=== PATIENT | female | born 1960 | race Caucasian/White ===

== ENCOUNTER 2020-06-11 07:56 | Outpatient (CLI) | payer MEDICARE, MEDICAID, SELFPAY ==
--- NOTE | ~2020-06-11 | MM_ITS ---
EXAMINATION: MM screening [facility] w [facility] HISTORY: Screening mammogram TECHNIQUE: Craniocaudal and mediolateral oblique 3-D tomosynthesis images were obtained and synthetic 2-D images were generated. CAD analysis was submitted and interpreted. COMPARISON: 06/09/2019, 06/08/2018, 06/03/2017 bilateral digital screening mammogram examinations BREAST PARENCHYMAL COMPOSITION: There are scattered areas of fibroglandular density. FINDINGS: There is no evidence of suspicious mass, calcification, or architectural distortion to sugg est malignancy in either breast. There has been no suspicious interval change. IMPRESSION: 1. No mammographic evidence of malignancy. 2. Recommend routine screening mammography in one year. BI-RADS Category 1: Negative Reviewed, dictated and finalized at location A. AIRCRAFT SERVICER
== END 2020-06-11 07:57 | disposition home or self-care (01) ==
LOC: ANHIMG 07:59
PROVIDERS: PCP Emergency Medicine; Visit Provider Emergency Medicine
DX: Z12.31 Encounter for screening mammogram for malignant neoplasm of breast (principal)
CPT/HCPCS: 77063; 77067

== ENCOUNTER 2021-06-13 08:02 | Outpatient (CLI) | payer MEDICARE, MEDICAID, SELFPAY ==
--- NOTE | ~2021-06-13 | MM_ITS ---
EXAMINATION: MM screening [facility] BI w merrill HISTORY: Screening mammogram TECHNIQUE: Craniocaudal and mediolateral oblique 3-D tomosynthesis images were obtained and synthetic 2-D images were generated. CAD analysis was submitted and interpreted. COMPARISON: 06/11/2020, 06/09/2019, 06/08/2018 BREAST PARENCHYMAL COMPOSITION: The breasts are almost entirely fatty. FINDINGS: There is no evidence of suspicious mass, calcification, or architectural distortion to sugg est malignancy in either breast. There has been no suspicious interval change. IMPRESSION: 1. No mammographic evidence of malignancy. 2. Recommend routine screening mammography in one year. BI-RADS Category 1: Negative Reviewed, dictated and finalized at location A. RICT DIRECTOR
== END 2021-06-13 08:03 | disposition home or self-care (01) ==
PROVIDERS: PCP Emergency Medicine; Visit Provider Emergency Medicine
DX: Z12.31 Encounter for screening mammogram for malignant neoplasm of breast (principal)
CPT/HCPCS: 77063; 77067

== ENCOUNTER → 2022-03-13 08:23 | Outpatient (CLI) | payer MEDICARE, MEDICAID, SELFPAY ==
--- NOTE | ~2022-03-13 | XR_ITS ---
XR lumbar spine 2-3V DATE: 03/13/2022 08:41 INDICATION: Low back pain, bilateral leg numbness for years. No injury. TECHNIQUE: AP, lateral, coned lateral lumbosacral views COMPARISON: 02/22/2019 lumbar spine 12/11/2016 CT abdomen pelvis FINDINGS: There is osteopenia. Chronic loss of height at L5-S1 disc space, also present on 03/11/2019. Moderate degenerative disc disease at L1-2. Minimal degenerative disc disease at L3-4. No fracture or bone destruction or spondylolisthesis. The included lower thoracic and lumbar pedicles are intact. The sacroiliac joints appear normal. IMPRESSION: Degenerative disc disease Osteopenia Reviewed, dictated and finalized at location B.
--- NOTE | ~2022-03-13 | XR_ITS ---
XR_CERV2-3V_CR DATE: 03/13/2022 08:41 INDICATION: Neck pain, left arm pain and numbness for years TECHNIQUE: AP, open-mouth, lateral views COMPARISON: None FINDINGS: C1 and C2 are normally aligned and the odontoid process is intact. No fracture or dislocati on, locked facet or prevertebral soft tissue swelling. C2-3, C3-4 and C4-5 interspaces are well preserved. There is mild anterior subluxation at C4-5. Moderate degenerative disc disease and prominent posterior spurring at C5-6. Moderately severe degenerative disease at C6-7. There is uncovertebral joint spurring primarily at C5-6 and C6-7. There is degenerative change at the apophyseal joints. IMPRESSION: Cervical spondylosis Reviewed, dictated and finalized at Location A. Reviewed, dictated and finalized at location B. IMPRESSION: Cervical spondylosis
== END ==
PROVIDERS: PCP Emergency Medicine; Visit Provider Emergency Medicine
DX: G89.29 Other chronic pain (principal); M51.36 Other intervertebral disc degeneration, lumbar region; M85.88 Other specified disorders of bone density and structure, other site; M47.812 Spondylosis without myelopathy or radiculopathy, cervical region
CPT/HCPCS: 72040; 72100

== ENCOUNTER 2022-08-06 08:04 | Outpatient (CLI) | payer MEDICARE, MEDICAID, SELFPAY ==
--- NOTE | ~2022-08-06 | MM_ITS ---
EXAMINATION: MM screening [facility] w [facility] HISTORY: Screening mammogram TECHNIQUE: Craniocaudal and mediolateral oblique 3-D tomosynthesis images were obtained and synthetic 2-D images were generated. CAD analysis was submitted and interpreted. COMPARISON: 06/13/2021, 06/11/2020, 06/09/2019 bilateral mammogram examinations BREAST PARENCHYMAL COMPOSITION: There are scattered areas of fibroglandular density. FINDINGS: There is no evidence of suspicious mass, calcification, or architectural distortion to sugg est malignancy in either breast. There has been no suspicious interval change. IMPRESSION: 1. No mammographic evidence of malignancy. 2. Recommend routine screening mammography in one year. BI-RADS Category 1: Negative Reviewed, dictated and finalized at location A. ESENTATIVE GOVERNMENT RELATIONS
== END 2022-08-06 08:05 | disposition home or self-care (01) ==
PROVIDERS: PCP Emergency Medicine; Visit Provider Emergency Medicine
DX: Z12.31 Encounter for screening mammogram for malignant neoplasm of breast (principal)
CPT/HCPCS: 77063; 77067

== ENCOUNTER → 2022-08-22 09:41 | Outpatient (CLI) | payer MEDICARE, MEDICAID, SELFPAY ==
--- NOTE | ~2022-08-22 | XR_ITS ---
XR elbow RT 2V 08/22/2022 09:53 INDICATION: Right elbow pain for one week PROCEDURE: 2 views right elbow COMPARISON: No prior studies for comparison. FINDINGS: Fracture, dislocation or subluxation is not identified. The soft tissues appear within norm al limits. No foreign bodies are identified. IMPRESSION: 1: NO ACUTE BONE OR JOINT ABNORMALITY IDENTIFIED. Reviewed, dictated and finalized at location B. ONAUTICAL ENGINEER
== END ==
PROVIDERS: PCP Emergency Medicine; Visit Provider Emergency Medicine
DX: M25.521 Pain in right elbow (principal)
CPT/HCPCS: 73070

== ENCOUNTER → 2022-09-17 10:56 | Outpatient (CLI) | payer MEDICARE, MEDICAID, SELFPAY ==
--- NOTE | ~2022-09-17 | XR_ITS ---
Left Knee Technique: AP and lateral views were obtained. Clinical History: Pain Findings: No fracture or dislocation is seen. Osseous alignment is anatomic. Joint spaces are preserv ed without degenerative or erosive change. Soft tissues are unremarkable. No joint effusion is seen. Impression: Unremarkable left knee radiographs. Reviewed, dictated and finalized at location . Impression: Unremarkable left knee radiographs.
--- NOTE | ~2022-09-17 | XR_ITS ---
Right Knee Technique: AP and lateral views were obtained. Clinical History: Pain Findings: No fracture or dislocation is seen. Osseous alignment is anatomic. Joint spaces are preserv ed without degenerative or erosive change. Soft tissues are unremarkable. No joint effusion is seen. Impression: Unremarkable right knee radiographs. Reviewed, dictated and finalized at location . Impression: Unremarkable right knee radiographs.
== END ==
PROVIDERS: PCP Emergency Medicine; Visit Provider Nurse Practitioner Family
DX: M25.562 Pain in left knee (principal); M25.561 Pain in right knee
CPT/HCPCS: 73560

== ENCOUNTER 2022-11-12 08:47 | Outpatient (CLI) | payer MEDICARE, MEDICAID, SELFPAY ==
[2022-11-12 09:36] LABS: Appearance Urine Cloudy (Clear); Bilirubin Urine Negative (Negative); Blood Urine Trace (Negative); Color Urine Yellow (Yellow); Glucose Urine UA Negative (Negative); Ketones Urine Negative (Negative); Leukocyte Esterase Ur 3+ LEU/UL (NEGATIVE); Nitrate Urine Negative (Negative); Protein Urine Negative (Negative); Specific Grav Ur 1.007 (1.001-1.035); Urobilinogen Urine 0.2 mg/dL (<2.0); pH Urine 6.5 (5.0-9.0)
[2022-11-12 09:41] LABS: Anion Gap 11 mmol/L (8-16); Blood Urea Nitrogen 15 mg/dL (7-17); Calcium 8.4 mg/dL (8.4-10.2); Carbon Dioxide 24 mmol/L (22-30); Chloride 96 mmol/L (98-107); Estimated Glomerular Filt Rate 42; Glucose 105 mg/dL (65-110); Sodium 131 mmol/L (137-145)
[2022-11-12 11:08] LABS: WBC Clumps Urine Present /hpf; WBC Urine >100 /hpf (0-3)
[2022-11-12 11:09] LABS: Squamous Epithelial Cell Urine Few /hpf (Few); Transitional Epi Cells Urine Few /hpf (None Seen)
[2022-11-12 11:10] LABS: Add Urine Microscopic? YES; Bacteria Urine 1+ /hpf
== END 2022-11-12 08:48 | disposition home or self-care (01) ==
PROVIDERS: PCP Emergency Medicine; Visit Provider Emergency Medicine
DX: E78.5 Hyperlipidemia, unspecified (principal)
CPT/HCPCS: 36415; 80048; 81001

== ENCOUNTER 2022-11-18 09:26 | Outpatient (CLI) | payer MEDICARE, MEDICAID, SELFPAY ==
[2022-11-18 10:06] LABS: Basophils Percent Auto 0.2 % (0.2-1.2); Eosinophils Absolute Auto 0.1 K/mm3 (0-0.3); Eosinophils Percent Auto 0.6 % (0-4.4); Hematocrit 27.1 % (37.0-47.0); Hemoglobin 8.9 g/dL (12.0-15.0); Immature Granulocyte Absolute 0.12 K/mm3 (0.00-0.031); Immature Granulocyte Percent A 1.3 % (0-0.5); Lymphocytes Absolute Auto 2.17 K/mm3 (0.9-3.2); Mean Corpuscular HGB Conc 32.8 g/dl (32-36); Mean Corpuscular Hemoglobin 35.7 pg (26-34); Mean Corpuscular Volume 108.8 fl (80-100); Mean Platelet Volume 10.2 fl (7.4-10.4); Monocytes Absolute Auto 0.8 K/mm3 (0.1-0.6); Monocytes Percent Auto 9.3 % (2.6-8.5); Neutrophils Absolute Auto 5.8 K/mm3 (1.3-6.7); Neutrophils Percent Auto 64.6 % (45.5-73.1); Platelet Count Result 211 k/mm3 (150-375); Red Blood Count 2.49 M/mm3 (4.2-5.4)
[2022-11-18 10:12] LABS: Alanine Aminotransferase 30 U/L (6-35); Albumin Level 3.5 g/dL (3.5-5.1); Alkaline Phosphatase 155 U/L (38-126); Anion Gap 9 mmol/L (8-16); Aspartate Amino Transferase 71 U/L (14-36); Bilirubin,Total 1.5 mg/dL (0.2-1.3); Blood Urea Nitrogen 17 mg/dL (7-17); Calcium 8.9 mg/dL (8.4-10.2); Carbon Dioxide 31 mmol/L (22-30); Chloride 90 mmol/L (98-107); Estimated Glomerular Filt Rate 46; Glucose 89 mg/dL (65-110); Potassium 4.1 mmol/L (3.4-5.0); Sodium 130 mmol/L (137-145)
[2022-11-18 10:13] LABS: Ethanol 32 mg/dL (<10)
[2022-11-18 10:23] LABS: INR 1.3; Prothrombin Time 16.6 Seconds (11.1-14.7)
[2022-11-18 12:03] LABS: Platelet Estimate Adequate (Adequate)
[2022-11-18 12:04] LABS: Anisocytosis 2+ (NORMAL); Macrocytosis 2+ (NORMAL)
[2022-11-18 12:05] LABS: Schistocytes None Seen (NORMAL); Stomatocytes 1+ (NORMAL)
[2022-11-24 08:25] LABS: Reference Lab Test Name Phosphatidylethanol
== END 2022-11-18 09:27 | disposition home or self-care (01) ==
PROVIDERS: PCP Emergency Medicine
DX: K70.31 Alcoholic cirrhosis of liver with ascites (principal)
CPT/HCPCS: 36415; 80053; 80307; 82248; 85025; 85610

== ENCOUNTER 2022-12-24 13:51 | Outpatient (CLI) | payer MEDICARE, MEDICAID, SELFPAY ==
[2022-12-24 16:21] LABS: Basophils Absolute Auto 0.1 K/mm3 (0.0-0.1); Basophils Percent Auto 0.7 % (0.2-1.2); Eosinophils Absolute Auto 0.1 K/mm3 (0-0.3); Eosinophils Percent Auto 0.5 % (0-4.4); Hematocrit 31.2 % (37.0-47.0); Hemoglobin 10.4 g/dL (12.0-15.0); Immature Granulocyte Absolute 0.05 K/mm3 (0.00-0.031); Immature Granulocyte Percent A 0.5 % (0-0.5); Lymphocytes Absolute Auto 1.36 K/mm3 (0.9-3.2); Lymphocytes Percent Auto 12.9 % (18.3-44.2); Mean Corpuscular HGB Conc 33.3 g/dl (32-36); Mean Corpuscular Hemoglobin 34.8 pg (26-34); Mean Corpuscular Volume 104.3 fl (80-100); Mean Platelet Volume 9.6 fl (7.4-10.4); Monocytes Absolute Auto 0.8 K/mm3 (0.1-0.6); Neutrophils Absolute Auto 8.2 K/mm3 (1.3-6.7); Neutrophils Percent Auto 77.4 % (45.5-73.1); Platelet Count Result 259 k/mm3 (150-375); Red Blood Count 2.99 M/mm3 (4.2-5.4); Red Cell Distribution Width 14.3 % (11.5-14.5); White Blood Count 10.5 K/mm3 (4.5-10.0)
[2022-12-24 16:31] LABS: Ethanol < 10 mg/dL (<10)
[2022-12-24 16:32] LABS: INR 1.4; Prothrombin Time 17.5 Seconds (11.1-14.7)
[2022-12-24 16:33] LABS: Alanine Aminotransferase 20 U/L (6-35); Albumin Level 3.2 g/dL (3.5-5.1); Alkaline Phosphatase 264 U/L (38-126); Anion Gap 10 mmol/L (8-16); Aspartate Amino Transferase 56 U/L (14-36); Blood Urea Nitrogen 10 mg/dL (7-17); Calcium 8.5 mg/dL (8.4-10.2); Carbon Dioxide 28 mmol/L (22-30); Chloride 89 mmol/L (98-107); Estimated Glomerular Filt Rate 38; Glucose 82 mg/dL (65-110); Potassium 3.6 mmol/L (3.4-5.0); Sodium 127 mmol/L (137-145)
== END 2022-12-24 13:52 | disposition home or self-care (01) ==
PROVIDERS: PCP Emergency Medicine
DX: K70.30 Alcoholic cirrhosis of liver without ascites (principal)
CPT/HCPCS: 36415; 80053; 80307; 82248; 85025; 85610

== ENCOUNTER 2023-02-17 11:27 | Outpatient (CLI) | payer MEDICARE, MEDICAID, SELFPAY ==
[2023-02-17 13:39] LABS: Alanine Aminotransferase 18 U/L (6-35); Albumin Level 2.9 g/dL (3.5-5.1); Alkaline Phosphatase 167 U/L (38-126); Anion Gap 10 mmol/L (8-16); Aspartate Amino Transferase 56 U/L (14-36); Bilirubin,Total 2.3 mg/dL (0.2-1.3); Blood Urea Nitrogen 13 mg/dL (7-17); Calcium 8.6 mg/dL (8.4-10.2); Carbon Dioxide 23 mmol/L (22-30); Chloride 95 mmol/L (98-107); Estimated Glomerular Filt Rate 42; Glucose 90 mg/dL (65-110); Potassium 3.7 mmol/L (3.4-5.0); Sodium 128 mmol/L (137-145)
== END 2023-02-17 11:28 | disposition home or self-care (01) ==
PROVIDERS: PCP Emergency Medicine
DX: K70.31 Alcoholic cirrhosis of liver with ascites (principal)
CPT/HCPCS: 36415; 80053

== ENCOUNTER 2023-03-04 11:46 | Outpatient (CLI) | payer MEDICARE, MEDICAID, SELFPAY ==
[2023-03-04 12:37] LABS: Alanine Aminotransferase 19 U/L (6-35); Albumin Level 2.8 g/dL (3.5-5.1); Alkaline Phosphatase 216 U/L (38-126); Anion Gap 9 mmol/L (8-16); Aspartate Amino Transferase 57 U/L (14-36); Bilirubin,Total 1.8 mg/dL (0.2-1.3); Blood Urea Nitrogen 10 mg/dL (7-17); Calcium 8.3 mg/dL (8.4-10.2); Carbon Dioxide 24 mmol/L (22-30); Chloride 94 mmol/L (98-107); Estimated Glomerular Filt Rate 43; Glucose 100 mg/dL (65-110); Potassium 3.6 mmol/L (3.4-5.0); Sodium 127 mmol/L (137-145)
[2023-03-07 23:26] LABS: Vitamin D 1,25 (OH)2 Total 18 pg/mL (18-72); Vitamin D2 1,25 (OH)2 <8 pg/mL; Vitamin D3 1,25 (OH)2 18 pg/mL
== END 2023-03-04 11:47 | disposition home or self-care (01) ==
PROVIDERS: PCP Emergency Medicine; Visit Provider Emergency Medicine
DX: E55.9 Vitamin D deficiency, unspecified (principal); E78.5 Hyperlipidemia, unspecified
CPT/HCPCS: 36415; 80053; 82652

== ENCOUNTER 2023-03-11 09:53 | Outpatient (CLI) | payer MEDICARE, MEDICAID, SELFPAY ==
[2023-03-11 11:02] LABS: Anion Gap 6 mmol/L (8-16); Blood Urea Nitrogen 8 mg/dL (7-17); Calcium 8.7 mg/dL (8.4-10.2); Carbon Dioxide 27 mmol/L (22-30); Chloride 96 mmol/L (98-107); Estimated Glomerular Filt Rate 42; Glucose 102 mg/dL (65-110); Potassium 3.5 mmol/L (3.4-5.0); Sodium 129 mmol/L (137-145)
== END 2023-03-11 09:54 | disposition home or self-care (01) ==
PROVIDERS: PCP Emergency Medicine; Visit Provider Emergency Medicine
DX: I10 Essential (primary) hypertension (principal)
CPT/HCPCS: 36415; 80048

== ENCOUNTER 2023-03-31 12:46 | Outpatient (CLI) | payer MEDICARE, MEDICAID, SELFPAY ==
[2023-03-31 14:19] LABS: Alanine Aminotransferase 18 U/L (6-35); Albumin Level 3.1 g/dL (3.5-5.1); Alkaline Phosphatase 179 U/L (38-126); Anion Gap 9 mmol/L (8-16); Aspartate Amino Transferase 53 U/L (14-36); Bilirubin,Total 1.8 mg/dL (0.2-1.3); Blood Urea Nitrogen 13 mg/dL (7-17); Calcium 8.5 mg/dL (8.4-10.2); Carbon Dioxide 27 mmol/L (22-30); Chloride 88 mmol/L (98-107); Estimated Glomerular Filt Rate 33; Glucose 112 mg/dL (65-110); Sodium 124 mmol/L (137-145)
[2023-03-31 14:22] LABS: INR 1.3
[2023-04-02 11:07] LABS: Ethanol < 10 mg/dL (<10)
[2023-04-07 17:11] LABS: Alpha Fetoprotein Tumor Marker 3.3 ng/mL (<6.1)
== END 2023-03-31 12:47 | disposition home or self-care (01) ==
PROVIDERS: PCP Emergency Medicine
DX: K70.31 Alcoholic cirrhosis of liver with ascites (principal)
CPT/HCPCS: 36415; 80053; 80307; 82105; 82248; 85610

== ENCOUNTER 2023-06-25 12:46 | Emergency (ER) | payer MEDICARE, MEDICAID, SELFPAY ==
--- NOTE | ~2023-06-25 | CT_ITS ---
Non-contrast Head CT History: Head injury Technique: Axial non-contrast imaging of the brain was performed. Dose reduction technique was used on this scan by utilizing automated exposure control and iterative reconstruction technique. The dose -length product (DLP) was 681.00 mGy-cm. Findings: There is no evidence of intracranial hemorrhage, mass lesion, or acute infarct. Brain par enchyma appears normal. The ventricles and subarachnoid spaces are normal in size. The calvarium ap pears normal. The visualized paranasal sinuses and mastoid air cells are clear. Impression: No significant abnormality seen. Reviewed, dictated and finalized at [facility]. TRUCK DRIVER Impression: No significant abnormality seen.
--- NOTE | ~2023-06-25 | XR_ITS ---
EXAMINATION: XR sacroiliac joints min 3V DATE: 06/25/2023 13:35 INDICATION: Sacroiliac pain post ground-level fall TECHNIQUE: AP and left and right oblique views of the bilateral sacroiliac joints were obtained. COMPARISON: None. FINDINGS: Bone alignment is normal. No fracture. Bilateral hip and sacroiliac joint spaces are normal. Mild low er lumbar spondylosis. IMPRESSION: 1. Mild lower lumbar spondylosis. Otherwise unremarkable study with no acute osseous abnormality. Reviewed, dictated and finalized at location A. D INSTALLER IMPRESSION: 1. Mild lower lumbar spondylosis. Otherwise unremarkable study with no acute os seous abnormality.
[2023-06-25 12:44] VITALS: BP 122/99; PULSE 100; RESP 18; TEMP 36.8; O2SAT 99
[2023-06-25] MEDS: LIDO 1%/EPINEPHRINE 1:100,000 20 ML VIAL 4 ML INFILTRATE (13:26)
--- NOTE | 2023-06-25 13:37 | ED.FALL ---
HPI - Fall General Chief Complaint: Fall Stated Complaint: fall Time Seen by Provider: 06/25/23 12:49 History of Present Illness HPI Narrative: Patient is a 62-year-old female who presents ER after a fall outside of outpatient radiology. She is walking inside to have a low back x-ray performed due to a fall last week and some pain. When she tripped and fell she did not lose consciousness but she did strike her head on the ground. She has swelling above right eye. She has multiple lacerations from her glasses. Patient is not anticoagulated but she does have cirrhosis of the liver. She is followed in [place] for this issue. She has no new headache or change in vision or change in hearing. No lower extremity numbness or tingling or weakness. No difficulty with urination or defecation. Related Data Home Medications Medication Instructions Recorded Confirmed B-complex with vitamin C 1 cap PO DAILY 05/16/19 03/11/23 folic acid 1 mg tablet 1 mg PO DAILY 05/16/19 03/11/23 multivitamin 1 tablet PO DAILY 02/26/22 03/11/23 Ca 600 mg-D3 20 mcg-mag oxide 50 2 tablet PO DAILY 11/12/22 03/11/23 qb-Dl-jrraov-manganese-boron tablet (Calcium 600-D3 Plus (mag-zinc)) spironolactone 25 mg tablet 25 mg PO DAILY 06/05/23 ferrous sulfate 325 mg (65 mg 325 mg PO .EOD 06/23/23 iron) tablet (Feosol) Allergies Allergy/AdvReac Type Severity Reaction Status Date / Time codeine Allergy Unknown unknown Verified 06/23/23 14:38 Sulfa (Sulfonamide Allergy Unknown unknown Verified 06/23/23 14:38 Antibiotics) [facility] Past Medical History Medical History Abnormal findings on imaging of biliary tract Abrasions of multiple sites Acute bilateral low back pain with sciatica Acute bilateral thoracic back pain Acute cystitis without hematuria Acute hemorrhoid Adrenal insufficiency Adverse effect of antihyperlipidemic and antiarteriosclerotic drugs, initial encounter Anxiety Body mass index [BMI] 26.0-26.9, adult (09/04/17) Body mass index [BMI] 28.0-28.9, adult (05/08/17) Body mass index [BMI] 32.0-32.9, adult (03/24/17) Body mass index [BMI] 34.0-34.9, adult (08/28/16) Body mass index [BMI] 35.0-35.9, adult (07/31/16) Body mass index [BMI] 37.0-37.9, adult (01/01/17) Chronic pancreatitis Cirrhosis of liver AGUIRRE (dyspnea on exertion) Dysuria Elevated liver enzymes ETOH abuse Fall Generalized abdominal pain GERD (gastroesophageal reflux disease) H/O chronic ear infection Hearing aid consultation Hepatic steatosis Hyperglycemia Hypokalemia Intractable cyclical vomiting with nausea Left hip pain Leg pain, bilateral Lumbar radicular pain Lumbar spine pain Macrocytosis without anemia Myalgia due to statin Nausea Non-intractable vomiting with nausea Numbness and tingling of leg Other [facility] (current) drug therapy Pain in left leg Pain in toe of left foot Pleural effusion Rectal bleed Right upper quadrant abdominal pain Sensorineural hearing loss (SNHL) of both ears Serum ammonia increased Unsteady gait URI with cough and congestion Urinary tract infection, site not specified Yeast infection Family History Family History Sibling Family history of migraine headaches Family history of mental disorder Depression Family history of hepatitis Family history of irritable bowel syndrome Family history of heart disease in male family member before age 55 Father Acute myocardial infarction, Onset Age: 83 Family history of heart disease in male family member before age 55 Patient's father is Mother Family history of lung cancer Patient's mother is Grandparent Cerebrovascular accident Family history of heart disease in male family member before age 55 Other Family history of cardiovascular disease Social History Social History (Reviewed 06/23/23 @ 14:52 by Eliseo
[2023-06-25 14:29] VITALS: PULSE 93; RESP 14; O2SAT 95
[2023-06-25 14:30] VITALS: PULSE 90; RESP 15; O2SAT 95
[2023-06-25 14:32] VITALS: BP 141/78; PULSE 93; RESP 17; O2SAT 96
[2023-06-25 14:49] VITALS: PULSE 90; RESP 17; O2SAT 92
[2023-06-25 15:04] VITALS: PULSE 88; RESP 12; O2SAT 95
== END 2023-06-25 15:11 | disposition home or self-care (01) ==
PROVIDERS: Emergency Provider Emergency Medicine; PCP Emergency Medicine
DX: S01.111A Laceration without foreign body of right eyelid and periocular area, initial encounter (principal); S01.411A Laceration without foreign body of right cheek and temporomandibular area, initial encounter; K74.60 Unspecified cirrhosis of liver; E27.40 Unspecified adrenocortical insufficiency; D75.89 Other specified diseases of blood and blood-forming organs; H90.3 Sensorineural hearing loss, bilateral; K21.9 Gastro-esophageal reflux disease without esophagitis; Z87.440 Personal history of urinary (tract) infections; M47.816 Spondylosis without myelopathy or radiculopathy, lumbar region; W01.0XXA Fall on same level from slipping, tripping and stumbling without subsequent striking against object, initial encounter
CPT/HCPCS: 12011; 70450; 72202; 99284

== ENCOUNTER 2023-07-14 13:34 | Outpatient (CLI) | payer MEDICARE, MEDICAID, SELFPAY ==
[2023-07-14 14:48] LABS: Alanine Aminotransferase 41 U/L (6-35); Alkaline Phosphatase 249 U/L (38-126); Anion Gap 13 mmol/L (8-16); Aspartate Amino Transferase 67 U/L (14-36); Bilirubin,Total 2.9 mg/dL (0.2-1.3); Blood Urea Nitrogen 15 mg/dL (7-17); Calcium 8.5 mg/dL (8.4-10.2); Carbon Dioxide 25 mmol/L (22-30); Chloride 89 mmol/L (98-107); Cholesterol 207 mg/dL (0-200); Estimated Glomerular Filt Rate 35; Glucose 96 mg/dL (65-110); HDL Direct 28 mg/dL; Potassium 3.4 mmol/L (3.4-5.0); Sodium 127 mmol/L (137-145); Triglycerides 118 mg/dL (<150)
[2023-07-14 14:59] LABS: LDL Cholesterol Direct 112 mg/dL
== END 2023-07-14 13:35 | disposition home or self-care (01) ==
PROVIDERS: PCP Emergency Medicine; Visit Provider Emergency Medicine
DX: E55.9 Vitamin D deficiency, unspecified (principal); I10 Essential (primary) hypertension
CPT/HCPCS: 36415; 80053; 80061; 82306